=== PATIENT | male | born 1995 | race Caucasian/White ===

== ENCOUNTER 2017-04-19 21:33 | Emergency (ER) | payer BC ==
[2017-04-19 21:46] VITALS: BP 134/71
[2017-04-19] MEDS ORDERED: Oseltamivir CAP* 75 MG CAP PO ONE (21:54)
--- NOTE | 2017-04-19 21:59 | UC ---
David Orta Stephanie, scribed for Darius Goetz MD on 04/19/17 at 2158 . FLU HPI - HPI Summary HPI Summary: The pt is a 21 y/o M presenting to with c/o fever that began on 04/17/18. Symptoms include cough, nasal congestion, AGUILERA, myalgia and sore throat. The pt reports sick contact from his girlfriend who is positive for influenza. - History of Current Complaint Chief Complaint: UCRespiratory Stated Complaint: COUGH,FLU-LIKE SYMPTOMS Time Seen by Provider: 04/19/17 21:50 Hx Obtained From: Patient Onset/Duration: Gradual Onset, Lasting Days - 2, Still Present Severity Currently: Moderate Pain Intensity: 6 Pain Scale Used: 0-10 Numeric Associated Signs & Symptoms: Positive: Fever, Myalgia, Cough, Sore Throat, Nasal Congestion, Headache - Allergy/Home Medications Allergies/Adverse Reactions: Allergies Allergy/AdvReac Type Severity Reaction Status Date / Time No Known Allergies Allergy Unverified 04/19/17 21:47 PMH/Surg Hx/FS Hx/Imm Hx Previously Healthy: Yes - The pt denies any past medical hx. - Surgical History Surgical History: None - Family History Known Family History: Positive: Unknown - FHx reviewed and non-contributory - Social History Occupation: Student Lives: With Family Alcohol Use: None Substance Use Type: None Smoking Status (MU): Never Smoked Tobacco Review of Systems Constitutional: Fever Skin: Negative Eyes: Negative ENT: Sore Throat, Sinus Congestion Respiratory: Cough Cardiovascular: Negative Gastrointestinal: Negative Genitourinary: Negative Motor: Negative Neurovascular: Negative Musculoskeletal: Myalgia Neurological: Headache Psychological: Negative All Other Systems Reviewed And Are Negative: Yes Physical Exam Triage Information Reviewed: Yes Vital Signs: Initial Vital Signs Temp 100.1 F 04/19/17 21:41 Pulse 115 04/19/17 21:41 Resp 16 04/19/17 21:41 BP 134/71 04/19/17 21:41 Pulse Ox 99 04/19/17 21:41 Vital Signs Reviewed: Yes - Additional Comments General: Mildly ill-appearing, no pain distress Skin: warm, color reflects adequate perfusion, dry Head: normal Eyes: EOMI, FREDERIC ENT: clear rhinorrhea, mild posterior pharynx erythema Neck: supple, nontender Respiratory: CTA, breath sounds present Cardiovascular: RRR Abdomen: soft, nontender Bowel: present Musculoskeletal: normal, strength/ROM intact Neurological: normal, sensory/motor intact, A&O x3 Psychological: affect/mood appropriate Flu Course/Dx - Differential Dx/Diagnosis Provider Diagnoses: INFLUENZA Discharge - Discharge Plan Condition: Stable Disposition: HOME Prescriptions: Oseltamivir CAP* [Tamiflu CAP*] 75 mg PO BID #9 cap Patient Education Materials: Influenza (ED) Referrals: Sulema Coe MD [Primary Care Provider] - Additional Instructions: FOLLOW UP WITH YOUR DOCTOR. GET RECHECKED FOR ANY WORSENING OF YOUR CONDITION OR QUESTIONS OR CONCERNS. The documentation as recorded by the David yates Stephanie accurately reflects the service I personally performed and the decisions made by me, Darius Goetz MD.
== END 2017-04-19 22:04 | disposition home or self-care (01) ==
LOC: UCEAST 21:33
DX: J11.1 Influenza due to unidentified influenza virus with other respiratory manifestations (principal)
CPT/HCPCS: 99212; A9270-GY; G0463

== ENCOUNTER 2023-03-31 16:51 | Observation (INO) ==
[2023-03-31] MEDS ORDERED: Lactated Ringers 1000 ml BAG 1,000 ML IV ONE ×2 (17:44→22:47)
[2023-03-31 18:06] LABS: ABS Lymphocytes 1.1 10^3/uL (1.0-4.8); ABS Monocytes 0.9 10^3/uL (0.0-1.1); ABS Neutrophils 15.4 10^3/uL (1.5-7.6); ABS Nucleated RBC 0.04 10^3/ul; Eosinophil % 0.2 %; Hematocrit 42.8 % (38-53); Lymphocyte % 6.1 %; Mean Corpuscular Hemoglobin 31.9 pg (27-33); Mean Corpuscular Hgb Conc 35.1 g/dL (31-36); Mean Corpuscular Volume 90.9 fL (80-97); Mean Platelet Volume 7.6 fL (7.5-11.2); Nucleated Red Blood Cells % 0.2 %/100WBC (0.0-0.8); Platelet Count 227 10^3/uL (150-450); Red Blood Count 4.71 10^6/uL (4.06-5.63); Red Cell Distribution Width 12.5 % (12-17); White Blood Count 17.4 10^3/uL (3.6-10.2)
[2023-03-31 18:12] LABS: Urine Appearance Cloudy; Urine Bilirubin Negative (Negative); Urine Blood Negative (Negative); Urine Color Amber; Urine Glucose Negative (Negative); Urine Ketones Negative (Negative); Urine Nitrite Negative (Negative); Urine Protein 1+(30 mg/dL) (Negative); Urine Specific Gravity 1.034 (1.002-1.030); Urine Urobilinogen Negative (Negative)
[2023-03-31 18:20] LABS: Urine Bacteria Absent (Absent); Urine Red Blood Cell Absent (Absent); Urine White Blood Cell Absent (Absent)
[2023-03-31 18:25] LABS: Albumin 4.9 g/dL (3.2-5.2); Albumin/Globulin Ratio 1.8 (1-3); C Reactive Protein 59.59 mg/L (<8.01); Calcium 9.9 mg/dL (8.6-10.3); Creatinine, Serum 0.85 mg/dL (0.67-1.17); Globulin 2.7 g/dL (2-4); Potassium 3.6 mmol/L (3.5-5.0); Total Bilirubin 1.2 mg/dL (0.2-1.0); Total Protein 7.6 g/dL (6.4-8.9); eGFR CKD-EPI 123.7 (>60)
[2023-03-31] MEDS ORDERED: Iohexol 350 (CONTRAST) 500 ML MDV IV ONE (18:49)
[2023-03-31] MEDS ORDERED: Morphine 4 MG/ML VIAL (1 ml) IV ONE ×2 (20:52→22:14)
[2023-03-31] MEDS ORDERED: Ondansetron 4 mg VIAL 2 MG/ML 2 ml VIAL IV ONE (20:53)
[2023-03-31] MEDS ORDERED: Piperacillin/Tazobac 3.375 BAG 3.375 GM/100 ML BAG IV ONE (20:53)
[2023-04-01] MEDS ORDERED: NS 0.9% 1000 ml BAG 1,000 ML IV SCH (00:15)
[2023-04-01] MEDS ORDERED: Ondansetron 4 mg VIAL 2 MG/ML 2 ml VIAL IV PRN ×2 (00:17→07:05)
[2023-04-01] MEDS ORDERED: Zosyn per Pharmacy NOTE FOLLOW UP SCH (01:00)
[2023-04-01] MEDS ORDERED: ZOSYN 3.375 GM Q8H per EXTENDED INFUSION IV SCH ×2 (01:30→10:00)
[2023-04-01] MEDS ORDERED: Midazolam 2 mg/2 ml VIAL 1 mg/ml 2 ml VIAL (2 mg) ONE (06:52)
[2023-04-01] MEDS ORDERED: fentaNYL 100 mcg/2 ml 50 MCG/ML VIAL ONE ×2 (06:52→09:19)
[2023-04-01] MEDS ORDERED: Ondansetron 4 mg VIAL 2 MG/ML 2 ml VIAL ONE (06:53)
[2023-04-01] MEDS ORDERED: Dexamethasone IV 4 MG/ML VIAL 1 ml VIAL ONE (06:53)
[2023-04-01] MEDS ORDERED: Propofol 10 MG/ML 20 ML BTL ONE (06:53)
[2023-04-01] MEDS ORDERED: Succinylcholine 200 mg VIAL 20 mg/ml 10 ml VIAL (200 mg) ONE (06:53)
[2023-04-01] MEDS ORDERED: Buffered Lidocaine 1% SYRIN 1 ml INTRADERM ONE (07:05)
[2023-04-01] MEDS ORDERED: HYDROcodone/ACETAMIN 5/325 mg TAB PO PRN (07:05)
[2023-04-01] MEDS ORDERED: Metoclopramide 5 MG/ML VIAL (10 mg) IV PRN (07:05)
[2023-04-01] MEDS ORDERED: Sodium Citrate/Citric Acid LIQ 15 ML UDC PO ONE (07:05)
[2023-04-01] MEDS ORDERED: Naloxone 0.4 mg VIAL 0.4 mg/ml 1 ml VIAL IV PRN (07:05)
[2023-04-01] MEDS ORDERED: fentaNYL 100 mcg/2 ml 50 MCG/ML VIAL IV PRN (07:05)
[2023-04-01] MEDS ORDERED: Lidocaine 1% w EPI 1:200,000 SDV 30 ML VIAL ONE (07:19)
[2023-04-01] MEDS ORDERED: Bupivacaine 0.5% SDV PF 30ML VIAL ONE (07:19)
[2023-04-01] MEDS ORDERED: Sodium Citrate/Citric Acid LIQ 15 ML UDC ONE (07:34)
[2023-04-01] MEDS ORDERED: Lactated Ringers 1000 ml BAG 1,000 ML IV SCH (08:00)
[2023-04-01] MEDS ORDERED: HYDROcodone/ACETAMIN 5/325 mg TAB ONE (09:19)
[2023-04-01 10:18] VITALS: BP 125/67
== END 2023-04-01 10:20 | disposition home or self-care (01) ==
LOC: ED 16:51 → EDHOLD 16:51 → SSU 04-01 05:50
PROVIDERS: ADMIT Surgery; ATTEND Surgery